=== PATIENT | female | born 1985 | race African-American/Black ===

== ENCOUNTER 2016-05-28 11:42 | Emergency (ER) | payer BC, OTHER ==
[~2016-05-28] VITALS: Ht 182.9 cm; Wt 95.3 kg
[~2016-05-28 11:42] MED LIST: ONDA4TAB5; PRENCAP15
[2016-05-28 11:45] VITALS: BP 111/70
[2016-05-28 12:18] LABS: Urine Bilirubin Negative (Negative); Urine Blood Negative /uL (Negative); Urine Color Yellow (Yellow); Urine Glucose Normal (Normal); Urine Ketone Negative (Negative); Urine Nitrite Negative (Negative); Urine RBC <1 /hpf (0 - 4); Urine Squamous Epithelial Cell FEW /hpf (<5); Urine Urobilinogen Normal (Negative)
[2016-05-28] MEDS ORDERED: KETOROLAC TROMETH 60MG/2ML VIAL IM ONE (13:15)
== END 2016-05-28 14:51 | disposition home or self-care (01) ==
LOC: ER 11:50
DX: N83.11 Corpus luteum cyst of right ovary (principal)
CPT/HCPCS: 76856; 81001; 81025; 96372; 99285; J1885

== ENCOUNTER 2016-11-07 02:07 | Emergency (ER) | payer BC ==
[~2016-11-07] VITALS: Ht 182.9 cm; Wt 95.7 kg
[2016-11-07 02:38] LABS: Basophils # (auto) 0.1 uL; Basophils % (auto) 1.9 % (0.0-2.0); Eosinophils # (auto) 0.1 uL; Eosinophils % (auto) 1.2 % (0.0-7.0); Hematocrit 40.6 % (36.0-46.0); Hemoglobin 13.3 g/dL (12.2-16.2); Lymphocytes # (auto) 2.4 uL; Lymphocytes % (auto) 51.8 % (10.0-50.0); Mean Corpuscular Hemoglobin 29.4 pg (28.0-32.0); Mean Corpuscular Hgb Conc. 32.8 g/dL (32.0-36.0); Mean Corpuscular Volume 89.7 fL (80.0-100.0); Mean Platelet Volume 9.2 fL (7.4-10.4); Monocytes # (auto) 0.3 uL; Monocytes % (auto) 6.8 % (0.0-12.0); Neutrophils # (auto) 1.8 uL; Neutrophils % (auto) 38.3 % (37.0-80.0); Nucleated Red Blood Cells % 0.1 %; Platelet Count (auto) 236 10^3/uL (140-450); Red Cell Distribution Width 12.8 % (11.6-16.0); White Blood Cell 4.6 10^3/uL (4.4-10.8)
[2016-11-07 03:34] LABS: Albumin 3.6 g/dL (3.4-5.0); Anion Gap 7 (5-15); Aspartate Aminotransferase 15 U/L (15-37); BUN/Creatinine Ratio 9.8; Blood Urea Nitrogen 9 mg/dL (7-18); Calcium 8.4 mg/dL (8.5-10.1); Carbon Dioxide 25 mmol/L (21-32); Chloride 109 mmol/L (98-107); GFR African American 93 mL/min; GFR Non-African American 77 mL/min; Glucose 81 mg/dL (74-106); Magnesium 2.3 mg/dL (1.6-2.6); Potassium 3.9 mmol/L (3.5-5.1); Sodium 141 mmol/L (136-145)
[2016-11-07 03:50] LABS: Urine Bilirubin Negative (Negative); Urine Blood Negative /uL (Negative); Urine Color Yellow (Yellow); Urine Glucose Normal (Normal); Urine Ketone Negative (Negative); Urine Mucus FEW (None Seen); Urine Nitrite Negative (Negative); Urine RBC <1 /hpf (0 - 4); Urine Squamous Epithelial Cell MOD /hpf (<5); Urine Urobilinogen Normal (Negative); Urine pH 5.5 (5.0-8.0)
[2016-11-07 03:53] LABS: Alkaline Phosphatase 73 U/L (45-117); Bilirubin, Total 0.4 mg/dL (0.2-1.0); Total Protein 7.6 g/dL (6.4-8.2)
[2016-11-07] MEDS ORDERED: HYDROcodone-ACET 5/325MG TAB PO ONE (05:00)
[2016-11-07 06:45] VITALS: BP 101/65
== END 2016-11-07 06:56 | disposition home or self-care (01) ==
LOC: ER 02:07
DX: R07.89 Other chest pain (principal); R06.02 Shortness of breath; Z98.51 Tubal ligation status
CPT/HCPCS: 36415; 71010; 80053; 80307; 80320; 81001; 81025; 83735; 84484; 85025; 93005

== ENCOUNTER 2018-07-24 07:47 | Emergency (ER) | payer BC ==
[~2018-07-24] VITALS: Ht 182.9 cm; Wt 91.6 kg
[2018-07-24 08:08] VITALS: BP 128/80
[2018-07-24] MEDS ORDERED: METHOCARBAMOL 500 MG TAB PO ONE (08:30)
[2018-07-24] MEDS ORDERED: KETOROLAC TROMETH 60MG/2ML VIAL IM ONE (08:30)
== END 2018-07-24 09:26 | disposition home or self-care (01) ==
LOC: ER 07:50
DX: M79.651 Pain in right thigh (principal); M25.561 Pain in right knee; M54.5 Low back pain; Z98.51 Tubal ligation status
CPT/HCPCS: 73562; 81002; 81025; 96372; 99283; J1885

== ENCOUNTER 2019-01-03 04:03 | Emergency (ER) | payer BC ==
[~2019-01-03] VITALS: Ht 182.9 cm; Wt 93.0 kg
[~2019-01-03 04:03] MED LIST changes: +ONDA-144; -ONDA4TAB5
[2019-01-03 04:25] LABS: Urine WBC None Seen /hpf (0 - 5)
[2019-01-03 04:41] LABS: Urine Bacteria FEW /hpf (None Seen); Urine Blood 1+ /uL (Negative); Urine Mucus FEW (None Seen)
[2019-01-03 05:24] LABS: Basophils # (auto) 0 uL; Basophils % (auto) 0.6 % (0.0-2.0); Eosinophils # (auto) 0 uL; Eosinophils % (auto) 0.4 % (0.0-7.0); Hematocrit 40.9 % (36.0-46.0); Hemoglobin 13.6 g/dL (12.2-16.2); Lymphocytes # (auto) 1.8 uL; Lymphocytes % (auto) 42.9 % (10.0-50.0); Mean Corpuscular Hemoglobin 29.5 pg (28.0-32.0); Mean Corpuscular Hgb Conc. 33.3 g/dL (32.0-36.0); Mean Corpuscular Volume 88.7 fL (80.0-100.0); Monocytes # (auto) 0.3 uL; Monocytes % (auto) 8.3 % (0.0-12.0); Neutrophils % (auto) 47.8 % (37.0-80.0); Nucleated Red Blood Cells % 0.1 %; Platelet Count (auto) 239 10^3/uL (140-450); Red Blood Cells 4.61 10^6/uL (4.0-5.20); Red Cell Distribution Width 12.8 % (11.8-14.3); White Blood Cell 4.1 10^3/uL (4.4-10.8)
[2019-01-03 05:43] LABS: Albumin 3.4 g/dL (3.4-5.0); BUN/Creatinine Ratio 14.9; Calcium 8.1 mg/dL (8.5-10.1); Potassium 4.2 mmol/L (3.5-5.1)
[2019-01-03 05:45] LABS: Bilirubin, Total 0.4 mg/dL (0.2-1.0); Total Protein 7.5 g/dL (6.4-8.2)
[2019-01-03 08:03] VITALS: BP 123/78
[2019-01-03] MEDS ORDERED: SODIUM CHLORIDE 0.9% 500 ML IV ONE (08:45)
[2019-01-03 09:16] LABS: INR 0.93 (0.9-1.15); Partial Thromboplastin Time 30.6 sec (23.64-32.05)
== END 2019-01-03 09:36 | disposition left against medical advice (07) ==
LOC: ER 04:03
DX: O34.01 Maternal care for unspecified congenital malformation of uterus, first trimester (principal); O20.8 Other hemorrhage in early pregnancy; Z3A.01 Less than 8 weeks gestation of pregnancy
CPT/HCPCS: 36415; 76801; 80053; 81001; 81025; 84702; 85025; 85610; 85730; 86850; 86900; 86901; 94761